=== PATIENT | female | born 1985 | race Caucasian/White ===

== ENCOUNTER 2019-08-09 09:20 | Emergency (ER) | payer OTHER ==
[2019-08-09 09:29] VITALS: BP 135/90
[2019-08-09 11:47] LABS: ABSOLUTE NEUT (AUTO) 3.9 10^3/uL (1.7-8.2); BASOPHILS % (AUTO) 0.3 % (0-2); EOSINOPHILS % (AUTO) 0.2 % (0-6); HEMATOCRIT 41.5 % (36.0-47.0); HEMOGLOBIN 15.1 g/dL (12.0-15.5); LYMPHOCYTES % (AUTO) 28.7 % (13-45); MEAN CORPUSCULAR HEMOGLOBIN 32.6 pg (27.0-33.4); MEAN CORPUSCULAR HGB CONC 36.3 g/dL (32.0-36.0); MEAN CORPUSCULAR VOLUME 90 fl (80-97); MONOCYTES % (AUTO) 14.2 % (3-13); PLATELET COUNT 300 10^3/uL (150-450); RED BLOOD COUNT 4.62 10^6/uL (3.72-5.28); RED CELL DISTRIBUTION WIDTH 13.6 % (11.5-14.0); SEGMENTED NEUTROPHILS % (AUTO) 56.6 % (42-78); TOTAL CELLS COUNTED % (AUTO) 100 %
[2019-08-09 12:04] LABS: ALBUMIN 4.2 g/dL (3.5-5.0); ALKALINE PHOSPHATASE 86 U/L (38-126); ANION GAP 13 (5-19); ASPARTATE AMINO TRANSFERASE 33 U/L (14-36); BILIRUBIN,DIRECT 0.3 mg/dL (0.0-0.4); BILIRUBIN,TOTAL 0.7 mg/dL (0.2-1.3); BLOOD UREA NITROGEN 2 mg/dL (7-20); CALCIUM 9.3 mg/dL (8.4-10.2); CARBON DIOXIDE 28 mmol/L (22-30); CHLORIDE 93 mmol/L (98-107); GLUCOSE 81 mg/dL (75-110); TOTAL PROTEIN 7.3 g/dL (6.3-8.2)
[2019-08-09 12:08] LABS: APPEARANCE,URINE CLEAR; BILIRUBIN,URINE NEGATIVE (NEGATIVE); COLOR,URINE STRAW; GLUCOSE, URINE NEGATIVE (NEGATIVE); KETONES,URINE NEGATIVE (NEGATIVE); LEUKOCYTE ESTERASE,URINE SMALL (NEGATIVE); NITRITE,URINE NEGATIVE (NEGATIVE); PROTEIN,URINE NEGATIVE (NEGATIVE); URINE SPECIFIC GRAVITY 1.001; UROBILINOGEN,URINE NEGATIVE mg/dL (<2.0)
--- NOTE | 2019-08-09 13:00 | ER Document Report ---
HPI - HPI Time Seen by Provider: 08/09/19 09:53 Pain Level: 4 Notes: Patient is an otherwise healthy 33-year-old female presenting with 2-day history of nausea, diarrhea and now blood in her stool. Patient does report history of hemorrhoids, states that she has not had one in some time now. Patient reports bright red blood mixed with her stool. She denies any abdominal pain but does report intermittent low abdominal cramping. She has not had a fever or vomiting . She does report all symptoms started after she ate a bite of a hamburger that she states tasted bad. - REPRODUCTIVE LMP: 08/04/2019 Reproductive: DENIES: : - DERM Skin Color: Normal, [place] Past Medical History - General Information source: Patient - Social History Smoking Status: Never Smoker Frequency of alcohol use: Heavy Family History: Reviewed & Not Pertinent Patient has suicidal ideation: No Patient has homicidal ideation: No - Medical History Medical History: Negative Surgical Hx: Negative - Immunizations Immunizations up to date: Yes Vertical Provider Document - CONSTITUTIONAL Notes: PHYSICAL EXAMINATION: GENERAL: Well-appearing, well-nourished and in no acute distress. HEAD: Atraumatic, normocephalic. EYES: Pupils equal round and reactive to light, extraocular movements intact, conjunctiva are normal. ENT: Nares patent, oropharynx clear without exudates. Moist mucous membranes. NECK: Normal range of motion, supple without lymphadenopathy LUNGS: Breath sounds clear to auscultation bilaterally and equal. No wheezes rales or rhonchi. HEART: Regular rate and rhythm without murmurs ABDOMEN: Soft, nontender, nondistended abdomen. No guarding, no rebound. No masses appreciated. Rectal: Unremarkable exam, Hemoccult negative. Palpable nodule on inside of rectum, likely hemorrhoid. Female : deferred Musculoskeletal: Normal range of motion, no pitting or edema. No cyanosis. NEUROLOGICAL: Cranial nerves grossly intact. Normal speech, normal gait. Normal sensory, motor exams PSYCH: Normal mood, normal affect. SKIN: Warm, Dry, normal turgor, no rashes or lesions noted. - INFECTION CONTROL TRAVEL OUTSIDE OF THE [place] IN LAST 30 DAYS: No Course - Re-evaluation Re-evalutation: Patient's work-up here today was unremarkable. Patient was very apprehensive about having blood drawn however she did finally allow this. She refused IV placement. Her vital signs are within normal limits. He rectal exam was performed and Hemoccult was negative. Patient will be discharged home in stable condition. Strict ED return precautions were discussed, patient verbalized understanding and agreement with plan. - Vital Signs Vital signs: Temp Pulse Resp BP Pulse Ox 97.6 F 109 H 14 135/90 H 99 08/09/19 09:27 08/09/19 09:27 08/09/19 09:27 08/09/19 09:27 08/09/19 09:27 - Laboratory Result Diagrams: 08/09/19 11:25 08/09/19 11:25 Laboratory results interpreted by me: 08/09/19 08/09/19 08/09/19 11:25 11:25 11:25 MCHC 36.3 H [place] % (Auto) 14.2 H Sodium 133.8 L Chloride 93 L BUN 2 L Urine Blood SMALL H Ur Leukocyte Esterase SMALL H Discharge - Discharge Clinical Impression: Bloody stools, Nausea vomiting and diarrhea Condition: Stable Disposition: HOME, SELF-CARE Additional Instructions: You were seen in the emergency department today for complaints of blood in your stool. Your work-up here today was unremarkable. Your blood counts are normal. I did not find any evidence of blood in your stool on your rectal exam. I would recommend at this point since you have had diarrhea for 4 days trying some Imodium. I written you prescription for Zofran, take this as prescribed. Drink plenty of fluids. Follow-up with your primary care provider, call them tomorrow to schedule an appointment. Return to the emergency department for any new or worsening symptoms to include persistent vomiting, increase in diarrhea or increased blood in your stool. We are happy to reevaluate you at any time. Prescriptions: Ondansetron [Zofran Odt 4 mg Tablet] 1 - 2 tab PO Q4H PRN #15 tab.rapdis PRN Reason: For Nausea/Vomiting Referrals: ZAIRA PALAFOX PA [Primary Care Provider] - Follow up as needed
== END 2019-08-09 13:16 | disposition home or self-care (01) ==
LOC: ER 09:20
DX: R11.2 Nausea with vomiting, unspecified (principal); K92.1 Melena; R19.7 Diarrhea, unspecified; R10.30 Lower abdominal pain, unspecified
CPT/HCPCS: 36415; 80053; 81001; 81025; 83690; 85025; 99284